=== PATIENT | female | born 1960 | race Caucasian/White ===

== ENCOUNTER 2022-10-01 04:56 | Day surgery (SDC) | payer BC ==
[2022-10-01 05:07] VITALS: BMI 28.4
[2022-10-01 05:56] LABS: BASO % 0.6 % (0-2.0); EOS % 2.9 % (0-4.5); HEMATOCRIT 39.3 % (32.4-45.2); LYMPH % 40.8 % (8-40); MCH 29.1 pg (25.7-33.7); MCHC 33.1 g/dl (32.0-36.0); MEAN PLT VOLUME 9.3 fl (7.5-11.1); NEUT % 46.7 % (42.8-82.8); PLATELET COUNT 248 10^3/uL (134-434); RBC 4.47 M/mm3 (3.60-5.2); RDW 13.6 % (11.6-15.6); WHITE BLOOD COUNT 5.7 K/mm3 (4.0-10.0)
[2022-10-01 06:29] LABS: POTASSIUM 3.7 mmol/L (3.5-5.1)
[2022-10-01 06:31] LABS: CALCIUM 8.4 mg/dL (8.5-10.1)
[2022-10-01 06:32] LABS: ALBUMIN 3.5 g/dl (3.4-5.0); BLOOD UREA NITROGEN 13.4 mg/dL (7-18)
[2022-10-01 06:35] LABS: CREATININE 0.9 mg/dL (0.55-1.3)
[2022-10-01 06:36] LABS: BILIRUBIN,TOTAL 0.3 mg/dL (0.2-1)
[2022-10-01 07:00] LABS: INR 1.03 (0.83-1.09); PROTHROMBIN TIME (PATIENT) 11.9 SEC (9.7-13.0)
[2022-10-01 07:03] LABS: ACTIVATED PTT 30.7 SECONDS (25.2-36.5)
[2022-10-01] MEDS ORDERED: LACTATED RINGERS SOLUTION 1,000 ML/1,000 ML INFUS.BAG IV SCH (09:00)
[2022-10-01] MEDS ORDERED: PROPOFOL 20 ML ONE (13:30)
[2022-10-01] MEDS ORDERED: BUPIVACAINE HCL/PF 0.25% (2.5MG/ML) 10 ML VIAL ONE (13:36)
[2022-10-01] MEDS ORDERED: cefOXitin SODIUM 2 GM VIAL (RESTRICTED TO ID) IVPB ONE ×2 (13:37→13:58)
[2022-10-01] MEDS ORDERED: HEPARIN NA (PORCINE) 5,000 UNITS/ML 1ML VIAL ONE (13:38)
[2022-10-01] MEDS ORDERED: MIDAZOLAM HCL 2 MG/2 ML SINGLE DOSE VIAL ONE (13:46)
[2022-10-01] MEDS ORDERED: HEPARIN NA (PORCINE) 5,000 UNITS/ML 1ML VIAL SQ ONE (13:58)
[2022-10-01] MEDS ORDERED: DEXAMETHASONE SOD PHOSPHATE 4 MG/1 ML VIAL ONE (14:02)
[2022-10-01] MEDS ORDERED: ONDANSETRON 4 MG/2 ML VIAL ONE (14:02)
[2022-10-01] MEDS ORDERED: SUGAMMADEX SODIUM 200 MG/2 ML VIAL ONE (14:06)
[2022-10-01] MEDS ORDERED: BUPIVACAINE HCL/PF 0.5% (5MG/ML) 10 ML VIAL IJ ONE (14:30)
[2022-10-01] MEDS ORDERED: ONDANSETRON 4 MG/2 ML VIAL IVPUSH PRN (14:49)
[2022-10-01] MEDS: LACTATED RINGERS SOLUTION 1,000 ML IV SCH (15:13)
[2022-10-01] MEDS: ACETAMINOPHEN 1000 MG/100 ML BAG IVPB SCH (20:59)
[2022-10-01] MEDS: DOCUSATE SODIUM 100 MG CAPSULE (FP) PO SCH (21:01)
[2022-10-01] MEDS ORDERED: ONDANSETRON 4 MG/2 ML VIAL IVPUSH ONE (21:12)
[2022-10-02] MEDS: oxyCODONE HCL 5 MG TABLET PO PRN ×3 (01:03→14:32)
[2022-10-02] MEDS: ACETAMINOPHEN 1000 MG/100 ML BAG IVPB SCH ×3 (02:54→14:31)
[2022-10-02] MEDS: DOCUSATE SODIUM 100 MG CAPSULE (FP) PO SCH ×2 (05:50→14:32)
[2022-10-02 07:13] VITALS: TEMP 98
[2022-10-02 08:41] LABS: BASO % 0.1 % (0-2.0); EOS % 0.1 % (0-4.5); HEMATOCRIT 39.1 % (32.4-45.2); HEMOGLOBIN 12.7 GM/dL (10.7-15.3); LYMPH % 24.4 % (8-40); MCH 28.8 pg (25.7-33.7); MCHC 32.6 g/dl (32.0-36.0); MEAN CELL VOLUME 88.3 fl (80-96); MEAN PLT VOLUME 9.9 fl (7.5-11.1); MONO % 8.1 % (3.8-10.2); NEUT % 67.3 % (42.8-82.8); PLATELET COUNT 235 10^3/uL (134-434); RBC 4.43 M/mm3 (3.60-5.2); RDW 13.5 % (11.6-15.6); WHITE BLOOD COUNT 7.9 K/mm3 (4.0-10.0)
[2022-10-02 08:56] LABS: POTASSIUM 4.2 mmol/L (3.5-5.1)
[2022-10-02 08:59] LABS: CALCIUM 8.2 mg/dL (8.5-10.1)
[2022-10-02 09:00] LABS: ALBUMIN 3.2 g/dl (3.4-5.0); BLOOD UREA NITROGEN 9.3 mg/dL (7-18)
[2022-10-02 09:03] LABS: CREATININE 0.7 mg/dL (0.55-1.3)
[2022-10-02 09:05] LABS: BILIRUBIN,TOTAL 0.6 mg/dL (0.2-1); TOT PROT 6.4 g/dl (6.4-8.2)
[2022-10-02] MEDS ORDERED: ONDANSETRON *ODT* 4 MG TABLET SL ONE (15:47)
[2022-10-02] MEDS: LACTATED RINGERS SOLUTION 1,000 ML IV SCH (16:35)
[2022-10-02 18:52] VITALS: BP 144/79; PULSE 86; RESP 18
== END 2022-10-02 18:45 | disposition home or self-care (01) ==
LOC: JER 04:56 → UNDOADMOB 07:51 → JERBED 07:51 → SUATTDRO 12:48 → JASUSAT 12:48 → J8W 17:45 → JASUSAT 10-02 18:45
PROVIDERS: ATTEND Nurse Practitioner Family
PROC: 0FT44ZZ Resection of Gallbladder, Percutaneous Endoscopic Approach (ICD-10-PCS; principal; 2022-10-01 20:15)
DX: K81.1 Chronic cholecystitis (principal)
CPT/HCPCS: 36415; 71046-TC-FY; 80053; 85025; 85610; 85730; 86850; 86900; 86901; 88304-TC; 93005; 93010; 94760; 99285-25; J1644; Q0162